=== PATIENT | male | born 1955 | race Caucasian/White ===

== ENCOUNTER 2016-04-02 14:07 | Emergency (ER) | payer OTHER ==
[~2016-04-02] VITALS: Ht 182.9 cm; Wt 61.6 kg
[~2016-04-02 14:07] MED LIST: AZITHROMYCIN250 MG PO; BENADRYL25 MG PO; FOLIC ACID1 MG PO; LEVAQUIN500 MG PO; PANTOPRAZOLE SO40 MG PO; PREDNISONE5 MG PO; PROAIR HFA8.5 GM IH; THERAGRAN1 TABLET PO; VITAMIN B-1100 MG PO; WELLBUTRIN SR150 MG PO; [UNRECOGNIZED DRUG - SUPPLY]
[2016-04-02 15:45] LABS: HEMATOCRIT 41.6 % (38.0-50.0); MCH 31.7 PG (29.0-34.0); MCHC 35.1 G/DL (30.0-36.0); MCV 90.4 FL (86-99); MEAN PLAT.VOLUME 10.2 uM^3 (9.0-12.4); PLATELET COUNT 199 K/uL (156-360); RBC DIS.WIDTH-CV 13.2 % (11.8-14.6); RBC DIS.WIDTH-SD 42.7 % (39-53); WHITE BLOOD COUNT 9.8 K/uL (4.1-10.2)
[2016-04-02 15:54] LABS: CHLORIDE 102 mEq/L (99-109); POTASSIUM 3.9 mEq/L (3.7-5.4); SODIUM 137 mEq/L (136-147)
[2016-04-02 15:56] LABS: GLUCOSE 157 mg/dL (70-99)
[2016-04-02 15:57] LABS: ANION GAP 10 MEQ/L (2-14)
[2016-04-02 15:58] LABS: TOTAL BILIRUBIN 0.8 mg/dL (0.0-1.0)
[2016-04-02 16:00] LABS: ALKALINE PHOSPHATASE 94 IU/L (3-129); GFR ESTIMATE (CALCULATED) > 59 mL/min/
[2016-04-02 16:01] LABS: UREA NITROGEN (BUN) 5 mg/dL (9-23)
[2016-04-02 16:03] LABS: LIPASE 39 U/L (1.0-51.0)
[2016-04-02] MEDS ORDERED: DELTASONE20 M1 PO (20:16)
[2016-04-02] MEDS ORDERED: ZITHROMAX250 MG PO (20:16)
[2016-04-02 20:45] VITALS: BP 122/93
== END 2016-04-02 20:47 | disposition home or self-care (01) ==
LOC: EME 14:07
DX: J44.0 Chronic obstructive pulmonary disease with (acute) lower respiratory infection (principal); J20.9 Acute bronchitis, unspecified; E78.5 Hyperlipidemia, unspecified; K21.9 Gastro-esophageal reflux disease without esophagitis; F17.200 Nicotine dependence, unspecified, uncomplicated
CPT/HCPCS: 80053; 81003; 83690; 85027; 99281; 99284; J7512